=== PATIENT | male | born 1960 | race Caucasian/White ===

== ENCOUNTER 2024-05-07 08:21 | Day surgery (SDC) | payer SELFPAY ==
[~2024-05-07] VITALS: Ht 180.3 cm; Wt 74.5 kg
[~2024-05-07 08:21] MED LIST: Balanced Salt Epinephrine Irrigation Solution 500 mL IR SCH; Lidocaine HCl/Pf 1% 5 ML VIAL XX SCH; Moxifloxacin HCL 0.5 MG/0.1 ML 0.4MLSYR RIGHTEYE SCH; NS 500 ML IV ONE; PHENYLEPHRINE\\TROPICAMIDE\\TETRACAINE OPHTHALMIC DILATING SOLN RIGHTEYE PRN; Povidone-Iodine 450 DROP/30 ML Solution RIGHTEYE SCH; Triamcinolone Inj Susp 40 MG / ML 1ML Vial INJ SCH; Triamcinolone Inj Susp 40 MG / ML 1ML Vial ONE
[2024-05-07] MEDS ORDERED: VITAMIN B12500 MCG (08:40)
[2024-05-07] MEDS ORDERED: VITAMIN D31250 MC2 (08:40)
[2024-05-07] MEDS ORDERED: ASCO500 PO (08:41)
[2024-05-07] MEDS ORDERED: NS 500 ML IV ONE (08:49)
--- NOTE | 2024-05-07 08:50 | NUR ---
05/07/24 0850 Emilee Lui AT 0842 PLEDGET AT [phone]
[2024-05-07] MEDS ORDERED: FentaNYL Citrate 50 MCG/ML 2 ML Injection ONE (09:04)
[2024-05-07] MEDS ORDERED: Midazolam HCl 1MG / ML 2ML Vial ONE (09:05)
[2024-05-07] MEDS ORDERED: Tetracaine HCl 0.5% Opth Soln 15 ml RIGHTEYE ONE (09:43)
== END 2024-05-07 10:54 | disposition home or self-care (01) ==
LOC: ORSCSDS 08:21
PROVIDERS: Ophthalmology
PROC: 08RJ3JZ Replacement of Right Lens with Synthetic Substitute, Percutaneous Approach (ICD-10-PCS; principal; 2024-05-07 09:30)
DX: H25.813 Combined forms of age-related cataract, bilateral (principal); H52.201 Unspecified astigmatism, right eye
CPT/HCPCS: J2250; J3010; J3301; J7040; V2632

== ENCOUNTER 2024-05-14 09:21 | Day surgery (SDC) | payer SELFPAY ==
[~2024-05-14] VITALS: Ht 180.3 cm; Wt 74.3 kg
[~2024-05-14 09:21] MED LIST changes: +ASCO500 PO; -Balanced Salt Epinephrine Irrigation Solution 500 mL IR SCH; -Lidocaine HCl/Pf 1% 5 ML VIAL XX SCH; -Moxifloxacin HCL 0.5 MG/0.1 ML 0.4MLSYR RIGHTEYE SCH; -PHENYLEPHRINE\\TROPICAMIDE\\TETRACAINE OPHTHALMIC DILATING SOLN RIGHTEYE PRN; -Povidone-Iodine 450 DROP/30 ML Solution RIGHTEYE SCH; -Triamcinolone Inj Susp 40 MG / ML 1ML Vial INJ SCH; +Tropicamide 1% Opth Soln 15 ML BTL ONE; +VITAMIN B12500 MCG; +VITAMIN D31250 MC2
[2024-05-14] MEDS ORDERED: CALCIUM (09:35)
--- NOTE | 2024-05-14 09:38 | NUR ---
05/14/24 0938 Emilee Lui AT 0933 PLEKRYSTALET AT [phone]
[2024-05-14] MEDS ORDERED: NS 500 ML IV ONE (09:40)
[2024-05-14] MEDS ORDERED: Midazolam HCl 1MG / ML 2ML Vial ONE (10:07)
[2024-05-14] MEDS ORDERED: Moxifloxacin HCL 0.5 MG/0.1 ML 0.4MLSYR XX ONE (10:24)
[2024-05-14] MEDS ORDERED: Lidocaine HCl/Pf 1% 5 ML VIAL XX ONE (10:24)
[2024-05-14] MEDS ORDERED: Balanced Salt Epinephrine Irrigation Solution 500 mL IR ONE (10:24)
== END 2024-05-14 11:14 | disposition home or self-care (01) ==
LOC: ORSCSDS 09:21
PROVIDERS: Ophthalmology
PROC: 08RK3JZ Replacement of Left Lens with Synthetic Substitute, Percutaneous Approach (ICD-10-PCS; principal; 2024-05-14 10:30)
DX: H25.812 Combined forms of age-related cataract, left eye (principal); Z96.1 Presence of intraocular lens; H52.202 Unspecified astigmatism, left eye
CPT/HCPCS: J2001; J2250; J3301; J7040; V2632